=== PATIENT | female | born 1995 | race African-American/Black ===

== ENCOUNTER 2019-07-13 18:51 | Emergency (ER) | payer OTHER ==
--- NOTE | 2019-07-13 19:01 | ED ---
Psychiatric Complaint - HPI Summary HPI Summary: This patient is a 24 year old female presenting to [facility] with a psychiatric complaint. She states she has been having increased emotional trauma over the past week, and she is concerned because she has never felt this way before. She denies having SI, thoughts of harming herself, or a plan, but that she has never felt this way before and grew concerned that she may begin to get these thoughts. - History Of Current Complaint Chief Complaint: EDMentalHealth Time Seen by Provider: 07/13/19 18:54 Hx Obtained From: Patient Onset/Duration: Lasting Weeks Timing: Weeks Character: Depressed Has Suicidal: Denies: Thoughts, With A Plan, Demonstrates Gesture, Has Prior Attempt(s) - Allergies/Home Medications Allergies/Adverse Reactions: Allergies Allergy/AdvReac Type Severity Reaction Status Date / Time No Known Allergies Allergy Verified 08/07/18 13:22 Home Medications: Home Medications Escitalopram * [Lexapro 5 mg (NF)] 5 mg PO DAILY 07/13/19 [History Confirmed ] PMH/Surg Hx/FS Hx/Imm Hx Endocrine/Hematology History: Denies: Hx Diabetes Cardiovascular History: Denies: Hx Hypertension, Hx Pacemaker/ICD History: Denies: Hx Renal Disease Sensory History: Denies: Hx Hearing Aid Psychiatric History: Denies: Hx Panic Disorder - Surgical History Surgery Procedure, Year, and Place: DENIES Infectious Disease History: No Infectious Disease History: Denies: Traveled Outside the [place] in Last 30 Days - Social History Occupation: Student Lives: Dormitory/Roommates Review of Systems Negative: Fever Positive: Depressed All Other Systems Reviewed And Are Negative: Yes Physical Exam - Summary Physical Exam Summary: Appearance: The patient is well-nourished in no acute distress and in no acute pain. Skin: The skin is warm and dry, and skin color reflects adequate perfusion. HEENT: The head is normocephalic and atraumatic. The pupils are equal and reactive. The conjunctivae are clear and without drainage. Nares are patent and without drainage. Mouth reveals moist mucous membranes, and the throat is without erythema and exudate. The external ears are intact. The ear canals are patent and without drainage. The tympanic membranes are intact. Neck: The neck is supple with full range of motion and non-tender. There are no carotid bruits. There is no neck vein distension. Respiratory: Chest is non-tender. Lungs are clear to auscultation and breath sounds are symmetrical and equal. Cardiovascular: Heart is regular rate and rhythm. There is no murmur or rub auscultated. There is no peripheral edema and pulses are symmetrical and equal. Abdomen: The abdomen is soft and non-tender. There are normal bowel sounds heard in all four quadrants and there is no organomegaly palpated. Musculoskeletal: There is no back tenderness noted. Extremities are non-tender with full range of motion. There is good capillary refill. There is no peripheral edema or calf tenderness elicited. Neurological: Patient is alert and oriented to person, place and time. The patient has symmetrical motor strength in all four extremities. Cranial nerves are grossly intact. Deep tendon reflexes are symmetrical and equal in all four extremities. Psychiatric: The patient has an appropriate affect and does not exhibit any anxiety or depression. Triage Information Reviewed: Yes Vital Signs On Initial Exam: Initial Vitals Temp Pulse Resp BP Pulse Ox 97.9 F 66 18 127/79 99 07/13/19 18:52 07/13/19 18:52 07/13/19 18:52 07/13/19 18:52 07/13/19 18:52 Vital Signs Reviewed: Yes Procedures - Sedation Patient Received Moderate/Deep Sedation with Procedure: No Diagnostics - Vital Signs Vital Signs Temp Pulse Resp BP Pulse Ox 07/13/19 18:52 97.9 F 66 18 127/79 99 - Laboratory Result Diagrams: 07/13/19 19:13 07/13/19 19:13 Lab Statement: Any lab studies that have been ordered have been reviewed, and results considered in the medical decision making process. Course/Dx - Course Course Of Treatment: Ms. Trudy Christine has been medically cleared in the emergency department is awaiting mental health about this time. - Differential Dx/Clinical Impression Provider Diagnosis: Depression Discharge ED - Sign-Out/Discharge Documenting (check all that apply): Sign-Out Patient Signing out patient TO: Nichole Holguin - Discharge Plan Condition: Stable Referrals: No Primary Care Phys,NOPCP [Primary Care Provider] - - Billing Disposition and Condition Condition: STABLE - Attestation Statements Document Initiated by Scribe: Yes Documenting Scribe: Dean Aldridge Provider For Whom Scribe is Documenting (Include Credential): James Thakkar MD Scribe Attestation: Dean Spear scribed for James Thakkar MD on 07/13/19 at 2143. Scribe Documentation Reviewed: Yes Provider Attestation: The documentation as recorded by the scribe, Dean Aldridge accurately reflects the service I personally performed and the decisions made by me, James Thakkar MD Status of Scribe Document: Viewed
[2019-07-13 19:22] LABS: ABS Eosinophils 0.1 10^3/ul (0-0.6); ABS Monocytes 0.4 10^3/ul (0-0.8); ABS Neutrophils 2.5 10^3/ul (1.5-7.7); Eosinophil % 1.6 %; Hematocrit 43 % (35-47); Lymphocyte % 40.2 %; Mean Corpuscular HGB Conc 33 g/dL (31-36); Mean Corpuscular Hemoglobin 28 pg (27-31); Mean Corpuscular Volume 86 fL (80-97); Mean Platelet Volume 9.1 fL (7.4-10.4); Platelet Count 337 10^3/uL (150-450); Red Cell Distribution Width 14 % (10-15)
[2019-07-13 19:42] LABS: ALT 17 U/L (7-52); AST 17 U/L (13-39); Albumin 4.7 g/dL (3.2-5.2); Albumin/Globulin Ratio 1.3 (1-3); Alkaline Phosphatase 63 U/L (34-104); Anion Gap 10 mmol/L (2-11); BUN/Creatinine Ratio 9.3 (8-20); Blood Urea Nitrogen 7 mg/dL (6-24); CO2 Carbon Dioxide 22 mmol/L (22-32); Calcium 9.9 mg/dL (8.6-10.3); Chloride 104 mmol/L (101-111); EGFR African American 115.9 (>60); EGFR Non-African American 95.8 (>60); Globulin 3.6 g/dL (2-4); Glucose 85 mg/dL (70-100); Potassium 3.6 mmol/L (3.5-5.0); Sodium 136 mmol/L (135-145); Total Protein 8.3 g/dL (6.4-8.9)
[2019-07-13 19:43] LABS: Acetaminophen < 15 mcg/mL; Alcohol < 10 mg/dL (<10); Salicylate < 2.50 mg/dL (<30)
[2019-07-13 19:48] LABS: HCG Pregnancy 0.86 mIU/mL
[2019-07-13 19:56] LABS: TSH (Thyroid Stimulating Horm) 0.71 mcIU/mL (0.34-5.60)
--- NOTE | 2019-07-13 22:07 | ED ---
Progress - Progress Note Progress Note: Patient is received as a sign out from Dr. Thakkar to Dr. Holguin at 2200 07/13/19 shift end pending MHE and disposition of this mental health patient. 0015 - MHE was completed. Patient's case was reviewed by Dr. Chanel, patient will be admitted to psych facility. As [facility] is full at this time, patient is slated to be transferred to another psychiatric facility for admission. Patient is signed out to Dr. Manley at 0700 07/14/19 shift change pending transfer of patient. Course/Dx - Course Course Of Treatment: 24-year-old female with suicidal ideation signed out at change of shift to il. Patient awaiting transfer to [facility]. Signed out at change of shift. - Diagnoses Provider Diagnoses: Depression - Provider Notifications Discussed Care Of Patient With: Yang Chanel Time Discussed With Above Provider: 00:15 Instructed by Provider To: Other - 0015 - MHE was completed. Patient's case was reviewed by Dr. Chanel, patient will be admitted to psych facility. As [facility] is full at this time, patient is slated to be transferred to another psychiatric facility for admission. Discharge ED - Sign-Out/Discharge Documenting (check all that apply): Sign-Out Patient Signing out patient TO: Marshall Manley - Discharge Plan Condition: Stable Disposition: HOME Patient Education Materials: Depression (ED) Referrals: No Primary Care Phys,NOPCP [Primary Care Provider] - - Billing Disposition and Condition Condition: STABLE Disposition: Home - Attestation Statements Document Initiated by Scribe: Yes Documenting Scribe: OLIVER VALENTIN Provider For Whom Ginny is Documenting (Include Credential): KAROL HOLGUIN MD Scribe Attestation: OLIVER Spear scribed for KAROL HOLGUIN MD on 07/15/19 at 0258. Scribe Documentation Reviewed: Yes Provider Attestation: The documentation as recorded by the OLIVER glass accurately reflects the service I personally performed and the decisions made by il, KAROL HOLGUIN MD Status of Scribe Document: Viewed
--- NOTE | 2019-07-14 07:03 | ED ---
Progress - Progress Note Progress Note: Pt is a sign out from Dr. Nichole Holguin at 07:00 on 07/14/19 at shift change, pending MH transfer. EKG at 09:06 reveals 59 BPM with normal sinus rhythm, no STEMI, nml axis, nml intervals, no acute changes. At 10:15, management consulting reports that Dr. Garcia reviewed the pts case and will discharge the pt with a diagnosis of depression. - Results/Orders Results/Orders: EKG at 09:06 reveals 59 BPM with normal sinus rhythm, no STEMI, nml axis, nml intervals, no acute changes. Reviewed and interpreted by ED physician. - Consult/PCP Time Called: 19:59 - Additional EKG/XRAY/Consults EKG #2: NSR Course/Dx - Diagnoses Provider Diagnoses: Depression - Provider Notifications Time Discussed With Above Provider: 00:15 Instructed by Provider To: Jesus - 0015 - MHE was completed. Patient's case was reviewed by Dr. hCanel, patient will be admitted to psych facility. As [facility] is full at this time, patient is slated to be transferred to another psychiatric facility for admission. Discharge ED - Sign-Out/Discharge Documenting (check all that apply): Patient Departure - Discharge, Receiving Sign-Out Receiving patient FROM: Nichole Holguin - 07:00 at 07/14/19 - Discharge Plan Condition: Stable Disposition: HOME Patient Education Materials: Depression (ED) Referrals: No Primary Care Phys,NOPCP [Primary Care Provider] - Additional Instructions: as tolerated - Billing Disposition and Condition Condition: STABLE Disposition: Home - Attestation Statements Document Initiated by Rembertoibe: Yes Documenting Scribe: Kaylah Delgado Provider For Whom Ginny is Documenting (Include Credential): Marshall Manley MD Scribe Attestation: I, Kaylah Delgado, scribed for Marshall Manley MD on 07/18/19 at 0549. Scribe Documentation Reviewed: Yes Provider Attestation: The documentation as recorded by the Kaylah glass accurately reflects the service I personally performed and the decisions made by me, Marshall Manley MD Status of Scribe Document: Viewed
[2019-07-14 10:46] LABS: Urine Appearance Clear; Urine Bilirubin Negative (Negative); Urine Blood Negative (Negative); Urine Color Amber; Urine Glucose Negative (Negative); Urine Ketones 1+ (Negative); Urine Nitrite Negative (Negative); Urine Protein Negative (Negative); Urine Specific Gravity 1.029 (1.010-1.030); Urine Urobilinogen Negative (Negative)
[2019-07-14 10:56] VITALS: BP 120/76
[2019-07-14 11:09] LABS: Urine Benzodiazepine Screen None Detected (None Detect); Urine Opiates Screen None Detected (None Detect)
== END 2019-07-14 10:40 | disposition home or self-care (01) ==
LOC: ED 18:51
DX: F32.9 Major depressive disorder, single episode, unspecified (principal); Z79.899 Other long term (current) drug therapy
CPT/HCPCS: 36415; 80053; 80307; 80320; 80329; 81003; 84443; 84702; 85025; 93005; 99285; G0480